=== PATIENT | female | born 1965 | race Caucasian/White ===

== ENCOUNTER 2017-01-27 15:40 | Emergency (ER) | payer BC ==
[~2017-01-27 15:40] MED LIST: "\\\"CHOLESTEROL MED\\\""; ABILIFY2 MG PO; AMOXIL875 MG; BACTRIM DS TABL1 TA1 PO; DESYREL300 MG PO; DESYREL50 MG PO; EFFEXOR XR PO; FIORICET1 TAB PO; LAMICTAL ODT100 MG; LAMICTAL PO; LAMICTAL100 MG PO; NITROFURANTOIN100 M2; PREVACID PO; PRILOSEC20 MG PO; PRILOSEC40 MG PO; PROZAC PO; PROZAC10 M1 PO; PROZAC40 MG PO; SINGULAIR PO; SINGULAIR4 MG PO; VITAMIN D5000 UNIT; VITAMIN D50000 UNIT PO; XANAX0.5 M1; XANAX0.5 M1 PO; XANAX1 MG PO; ZOFRAN ODT4 MG; ZOFRAN ODT4 MG PO; ZOFRAN ODT4 MG/UDTAB PO
[2017-01-27 17:07] LABS: BASOPHIL% 0.6 % (0-2.5); EOSINOPHIL# 0.1 X10e3 (0-0.7); EOSINOPHIL% 3.2 % (0.0-7.0); HEMATOCRIT 39.9 % (35.0-45.0); HEMOGLOBIN 12.7 gm/dL (12.0-16.0); LYMPHOCYTE# 1.7 X10e3 (1.0-3.5); LYMPHOCYTE% 46.8 % (17.0-45.0); MEAN CORPUSCULAR HEMOGLOBIN 28.2 PG (28-34); MEAN PLATELET VOLUME 8.7 FL (6.5-11.5); MONOCYTE# 0.3 X10e3 (0-1.0); MONOCYTE% 6.7 % (3.0-12.0); NEUTROPHIL# 1.6 X10e3 (1.5-7.1); NEUTROPHIL% 42.7 % (40-75); PLATELET COUNT 155 X10e3 (140-420); RED BLOOD COUNT 4.53 X10e (3.90-5.30); RED CELL DISTRIBUTION WIDTH 13.6 % (11.0-15.5); WHITE BLOOD COUNT 3.7 X10e3 (4.0-10.5)
[2017-01-27 17:17] LABS: DIFF IND NO
[2017-01-27 17:29] LABS: ALBUMIN SERUM 3.9 g/dL (3.5-5.0); ALKALINE PHOSPHATASE 59 U/L (32-92); ALT (SGPT) 17 U/L (10-40); AST (SGOT) 19 U/L (10-42); BILIRUBIN,TOTAL 0.8 mg/dL (0.2-2.0); BLOOD UREA NITROGEN 12 mg/dL (9-23); BUN/CREATININE RATIO 17.14; CARBON DIOXIDE 31 mmol/L (22-31); CHLORIDE 103 mmol/L (100-111); CREATININE SERUM 0.7 mg/dL (0.6-1.4); GLOM FILT RATE Estimated 101.7 mL/min (>60); GLUCOSE FASTING 81 mg/dL (70-110); LIPASE 34 U/L (22-51); POTASSIUM 4.4 mmol/L (3.5-5.1); PROTEIN TOTAL SERUM 6.6 g/dL (6.0-8.3); SODIUM 139 mmol/L (135-145)
[2017-01-27 17:30] LABS: BILIRUBIN, DIRECT <0.1 mg/dL (0.0-0.2); BILIRUBIN,INDIRECT 0.7 mg/dL (0.0-0.9)
[2017-01-27 20:09] LABS: URINE SOURCE CLEAN CATCH
[2017-01-27 20:15] LABS: URINE APPEARANCE CLOUDY; URINE BILIRUBIN NEG (NEG); URINE BLOOD 2+ (NEG); URINE COLOR YELLOW; URINE GLUCOSE NEG (NEG); URINE KETONE TRACE (NEG); URINE LEUKOCYTE ESTERASE 2+ (NEG); URINE NITRATE POS (NEG); URINE PH 7.5 (5-8); URINE PROTEIN NEG (NEG); URINE SPECIFIC GRAVITY 1.021 (1.003-1.035)
[2017-01-27 20:17] LABS: CULTURE INDICATED? YES; URINE BACTERIA AUWI 4+ (NEGATIVE); URINE SQUAMOUS EPITHELIAL CELL NONE SEEN /[HPF]
== END 2017-01-27 20:53 | disposition home or self-care (01) ==
LOC: CED 15:40
DX: N30.00 Acute cystitis without hematuria (principal); F17.200 Nicotine dependence, unspecified, uncomplicated; Z90.710 Acquired absence of both cervix and uterus
CPT/HCPCS: 80048; 80076; 81003; 83690; 85025; 87086; 87088; 87186; 96361; 96374; 99284; J2405